=== PATIENT | female | born 1995 | race African-American/Black ===

== ENCOUNTER 2017-11-01 14:15 | Emergency (ER) | payer OTHER ==
[~2017-11-01] VITALS: Ht 170.2 cm; Wt 60.5 kg
[2017-11-01 14:16] VITALS: BP 135/83; PULSE 85; RESP 16; TEMP 98.4; O2SAT 100
--- NOTE | 2017-11-01 14:25 | PD ---
HPI Chief Complaint: Injury Time Seen by Provider: 14:25 Travel History International Travel<30 days: No Contact w/Intl Traveler<30days: No Traveled to known affect area: No History of Present Illness HPI 22-year-old female presents emergency Department with complaint of left hip pain after falling back with her chair while at work today and landing on her left hip. She has history of left hip fracture and surgical fixation with metal plates. Denies hitting her head or loss of consciousness. Denies neck pain or back pain. Pain radiates down her left leg. Reports feeling some numbness and tingling in her left foot. Otherwise denies loss of sensation, decreased range of motion, decreased strength to the affected extremity. Has been using a cane to assist with ambulation. Rates pain 8/10. Describes it as a throbbing sensation. Worse with movement. Has not taken any medications or tried any treatment to alleviate her symptoms. No known relieving factors. Allergies to latex. History of anemia. No primary care provider at this time. Has no other medical complaints. No other modifying factors or associated signs and symptoms. PFSH Past Medical History ?: Not LMP: 10/09/2017 Social History Alcohol Use: No Tobacco Use: No Substance Use: No Allergies-Medications (Allergen,Severity, Reaction): Coded Allergies: latex (Verified Allergy, Unknown, 11/01/17) Reported Meds & Prescriptions Reported Meds & Active Scripts Active Ibuprofen 800 Mg Tab 800 Mg PO Q6HR PRN Review of Systems Except as stated in HPI: all other systems reviewed are Neg Physical Exam Narrative GENERAL: Well-nourished, well-developed black female patient, in no acute distress; afebrile, nontoxic-appearing SKIN: Warm and dry. HEAD: Atraumatic. Normocephalic. EYES: Pupils equal and round. No scleral icterus. No injection or drainage. ENT: Mucosa pink and moist. Airway patent. NECK: Trachea midline. CARDIOVASCULAR: Regular rate. RESPIRATORY: No accessory muscle use. GASTROINTESTINAL: Flat. MUSCULOSKELETAL: Left hip with full range of motion; with tenderness on abduction; tenderness on palpation to the lateral aspect; no obvious deformity; no leg length discrepancy. Left lower extremity is supple and non-tense with 2+ pedal pulse and sensory intact and without erythema or edema. No cyanosis. No edema. No obvious deformities. NEUROLOGICAL: Awake and alert. Oriented 3. No obvious cranial nerve deficits. Motor grossly within normal limits. Normal speech. PSYCHIATRIC: Appropriate mood and affect; insight and judgment normal. Data Data Last Documented VS Vital Signs Date Time Temp Pulse Resp B/P (MAP) Pulse Ox O2 Delivery O2 Flow Rate FiO2 11/01/17 15:33 11/01/17 14:16 98.4 85 16 100 Room Air Orders Orders Ibuprofen (Motrin) (11/01/17 14:30) Hip, Uni(Ap&Lat) W Ap Pelvis (11/01/17 14:28) Ed Discharge Order (11/01/17 15:12) Crutches (11/01/17 15:35) MDM Medical Decision Making Medical Screen Exam Complete: Yes Emergency Medical Condition: Yes Medical Record Reviewed: Yes Differential Diagnosis Fracture, injury, contusion Narrative Course 22-year-old female with history of left hip fracture and surgical repair with reinjury of left hip after falling back with her chair today while at work. Denies loss of consciousness. Denies neck pain or back pain. Ibuprofen and left hip with AP pelvis x-ray ordered. 1511: Left hip x-ray concludes: Hip and Pelvis X-Ray 11/01/17 1428 Signed Impressions: Service Date/Time: Wednesday, November 01, 2017 14:39 - CONCLUSION: Previous internal fixation left pelvis. No new fracture. Julien Erickson MD Patient provided a copy of the x-ray report. Patient has cane for support. I offered her crutches and she declined. Instructed patient to follow up with orthopedics if symptoms persist greater than 7-10 days. Ibuprofen Prescribed for home. Instructed patient to follow up with primary care provider. Patient verbalizes understanding and agreement with treatment plan. Patient is medically cleared and stable for discharge. Discussed reasons to return to the emergency department. Patient agrees with treatment plan. The patients vital signs are stable and the patient is stable for outpatient follow-up and treatment. Patient discharged home, stable and in no acute distress. 1536: Patient decided she wanted crutches for support. Crutches ordered and provided for support. Diagnosis Primary Impression: Injury of left hip Qualified Codes: S79.912A - Unspecified injury of left hip, initial encounter Referrals: Orthopaedic Surgeon Primary Care Physician Patient Instructions: Crutch Instructions (ED), General Instructions Additional Instructions: Tylenol or ibuprofen as directed and as needed for pain and inflammation Rest, ice, compress, and elevate extremity to decrease pain and inflammation Crutches and/or cane for support Avoid aggravating activity; increase activity as tolerated Follow-up with primary care provider Follow-up with orthopedics if symptoms persist greater than 7-10 days Return to the emergency department immediately with worsening of symptoms Med/Other Pt SpecificInfo: Prescription(s) given Scripts Ibuprofen (Ibuprofen) 800 Mg Tab 800 MG PO Q6HR Y for PAIN, #30 TAB 0 Refills Prov: Denae Romero 11/01/17 Disposition: 01 DISCHARGE HOME Condition: Stable Denae Romero Nov 01, 2017 14:25
[2017-11-01] MEDS ORDERED: IBUPROFEN 800 MG TAB PO ONE (14:30)
[2017-11-01] MEDS ORDERED: IBUP1TAB7 PO (14:36)
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
== END 2017-11-01 15:33 | disposition home or self-care (01) ==
LOC: NEPK 14:15
DX: S79.912A Unspecified injury of left hip, initial encounter (principal); D64.9 Anemia, unspecified; W08.XXXA Fall from other furniture, initial encounter
CPT/HCPCS: 73502; 99283; E0113

== ENCOUNTER 2018-01-02 04:04 | Emergency (ER) | payer OTHER ==
[~2018-01-02] VITALS: Ht 170.2 cm; Wt 58.0 kg
[~2018-01-02 04:04] MED LIST: IBUP1TAB7 PO
[2018-01-02 04:09] VITALS: BP 130/86; PULSE 92; RESP 20; TEMP 96.7; O2SAT 100
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
== END 2018-01-02 04:35 | disposition left against medical advice (07) ==
LOC: NEPD 04:04
DX: M54.5 Low back pain (principal)
CPT/HCPCS: 99281